=== PATIENT | female | born 1985 | race Caucasian/White ===

== ENCOUNTER 2018-10-04 08:57 | Inpatient (IN) | payer MEDICAID ==
[2018-10-04] MEDS ORDERED: BUTORPHANOL 2 MG INJ IV (09:30)
[2018-10-04] MEDS ORDERED: LIDOCAINE 1% (MPF) 30 ML INJ INJ (09:30)
[2018-10-04] MEDS ORDERED: CARBOPROST 250 MCG INJ IM ×2 (09:30→13:30)
[2018-10-04] MEDS ORDERED: METHYLERGONOVINE 0.2 MG INJ IM ×2 (09:30→13:30)
[2018-10-04] MEDS ORDERED: IBUPROFEN 600 MG TAB PO (09:30)
[2018-10-04] MEDS ORDERED: OXYTOCIN 30 UNITS/LR 500 ML IV ×3 (09:30→13:30)
[2018-10-04] MEDS ORDERED: MISOPROSTOL 200 MCG TAB PR ×2 (09:30→13:30)
[2018-10-04 10:00] LABS: ADD MAN DIFF? NO
[2018-10-04] MEDS: LACTATED RINGER'S 1,000 ML IV (10:01)
[2018-10-04 10:02] LABS: WHITE BLOOD COUNT 10.8 10^3/ul (4.8-10.8)
[2018-10-04 10:02] LABS: BASOPHILS % 0.3 % (0.0-2.0); EOSINOPHILS % 0.3 % (0.0-7.0); HEMATOCRIT 42.7 % (37.0-47.0); HEMOGLOBIN 14.4 g/dl (12.0-16.0); LYMPHOCYTES # 1.5 10^3/ul (0.8-2.9); LYMPHOCYTES % 13.8 % (15.0-51.0); MEAN CORPUSCULAR HEMOGLOBIN 31.8 pg (29.0-33.0); MEAN CORPUSCULAR HGB CONC 33.7 g/dl (32.0-37.0); MEAN CORPUSCULAR VOLUME 94.3 fl (82.0-101.0); MEAN PLATELET VOLUME 10.1 fl (7.4-10.4); MONOCYTE # 0.6 10^3/ul (0.3-0.9); MONOCYTES % 5.7 % (0.0-11.0); NEUTROPHIL # 8.6 10^3/ul (1.6-7.5); NEUTROPHILS % 79.4 % (39.0-77.0); PLATELET COUNT 239 10^3/UL (140-415); RED BLOOD COUNT 4.53 10^6/ul (4.20-5.40); RED CELL DISTRIBUTION WIDTH 13.6 % (11.5-14.5)
[2018-10-04 10:16] LABS: INR 0.85; PROTIME 11.7 Sec (11.9-14.9); PT RATIO 0.9
[2018-10-04 10:22] LABS: PARTIAL THROMBOPLASTIN TIME 27.5 Sec (23.0-35.0)
[2018-10-04] MEDS ORDERED: FENTAnyl 2MCG/ML-ROPIV 0.2% 100 ML (11:48)
[2018-10-04] MEDS: OXYTOCIN 30 UNITS/LR 500 ML IV ×3 (12:31→18:02)
[2018-10-04 12:48] LABS: HEPATITIS B SURFACE ANTIGEN NEGATIVE (NEGATIVE)
[2018-10-04] MEDS ORDERED: ONDANSETRON 4 MG INJ IV ×2 (13:30→14:00)
[2018-10-04] MEDS ORDERED: NACL 0.9% 3 ML SYG IV (13:30)
[2018-10-04] MEDS ORDERED: ACETAMINOPHEN 325 MG TAB PO (13:30)
[2018-10-04] MEDS ORDERED: OXYCODONE/ASPIRIN (4.88/325) TAB PO (13:30)
[2018-10-04] MEDS ORDERED: NALOXONE (0.4 MG/ML) INJ IV (14:00)
[2018-10-04] MEDS ORDERED: DIPHENHYDRAMINE 50 MG INJ IV (14:00)
[2018-10-04] MEDS ORDERED: FENTAnyl 2MCG/ML-ROPIV 0.2% 100 ML BAG EPI (14:00)
[2018-10-04 15:02] LABS: RAPID PLASMA REAGIN NONREACTIVE (NR)
[2018-10-04] MEDS: IBUPROFEN 600 MG TAB PO (17:54)
[2018-10-04] MEDS ORDERED: ALBUTEROL HFA 8 GM INHALER INH (21:00)
[2018-10-04] MEDS: BENZOCAINE 20% 56 ML SPRAY TOP (21:20)
[2018-10-04] MEDS: OXYCODONE/ASPIRIN (4.88/325) TAB PO (21:20)
[2018-10-04] MEDS: SENNA/DOCUSATE NA (8.6MG/50MG) TAB PO (21:21)
[2018-10-04] MEDS: WITCH HAZEL/GLYCERIN PAD PR (21:21)
[2018-10-04] MEDS: LANOLIN HPA 1 PKT TOP (21:21)
[2018-10-05] MEDS: IBUPROFEN 600 MG TAB PO ×5 (00:06→23:52)
[2018-10-05 08:22] LABS: HEMATOCRIT 37.5 % (37.0-47.0); HEMOGLOBIN 12.6 g/dl (12.0-16.0)
[2018-10-05] MEDS: SENNA/DOCUSATE NA (8.6MG/50MG) TAB PO ×2 (09:27→21:22)
[2018-10-06] MEDS: IBUPROFEN 600 MG TAB PO ×2 (05:28→12:00)
[2018-10-06] MEDS: BENZOCAINE 20% 56 ML SPRAY TOP (06:56)
[2018-10-06] MEDS: SENNA/DOCUSATE NA (8.6MG/50MG) TAB PO (09:00)
== END 2018-10-06 14:37 | disposition home or self-care (01) | DRG 807 ==
LOC: OBT 08:57 → L-D 08:57 → OBT 09:21 → L-D 09:20 → PP1 14:51
PROVIDERS: Obstetrics & Gynecology
PROC: 10E0XZZ Delivery of Products of Conception, External Approach (ICD-10-PCS; principal; 2018-10-04)
DX: O48.0 Post-term pregnancy (principal); Z37.0 Single live birth; Z3A.40 40 weeks gestation of pregnancy; O69.81X0 Labor and delivery complicated by cord around neck, without compression, not applicable or unspecified
CPT/HCPCS: 62319; 76815; 85014; 85018; 85025; 85610; 85730; 86592; 86850; 86900; 86901; 87340; 99464

== ENCOUNTER 2018-11-05 19:37 | Inpatient (IN) | payer MEDICAID ==
[2018-11-05 21:01] LABS: ADD MAN DIFF? NO
[2018-11-05] MEDS: SODIUM CHLORIDE 0.9% 1L BAG IV* (21:01)
[2018-11-05] MEDS: KETOROLAC 30 MG INJ IV (21:03)
[2018-11-05 21:05] LABS: BASOPHIL # 0.1 10^3/ul (0.0-0.1); BASOPHILS % 0.5 % (0.0-2.0); EOSINOPHILS % 7.1 % (0.0-7.0); HEMATOCRIT 38.2 % (37.0-47.0); HEMOGLOBIN 12.7 g/dl (12.0-16.0); LYMPHOCYTES # 1.2 10^3/ul (0.8-2.9); LYMPHOCYTES % 8.1 % (15.0-51.0); MEAN CORPUSCULAR HEMOGLOBIN 30.5 pg (29.0-33.0); MEAN CORPUSCULAR HGB CONC 33.2 g/dl (32.0-37.0); MEAN CORPUSCULAR VOLUME 91.8 fl (82.0-101.0); MEAN PLATELET VOLUME 8.9 fl (7.4-10.4); MONOCYTE # 0.9 10^3/ul (0.3-0.9); MONOCYTES % 6.5 % (0.0-11.0); NEUTROPHIL # 11.1 10^3/ul (1.6-7.5); NEUTROPHILS % 77.2 % (39.0-77.0); PLATELET COUNT 323 10^3/UL (140-415); RED BLOOD COUNT 4.16 10^6/ul (4.20-5.40); RED CELL DISTRIBUTION WIDTH 12.7 % (11.5-14.5)
[2018-11-05 21:05] LABS: WHITE BLOOD COUNT 14.4 10^3/ul (4.8-10.8)
[2018-11-05 21:13] LABS: LACTIC ACID 1.3 mmol/L (0.5-2.0)
[2018-11-05 21:13] LABS: ALANINE AMINOTRANSFERASE 21 IU/L (13-69); ALBUMIN 3.8 g/dl (3.3-4.9); ALBUMIN/GLOBULIN RATIO 1.11; ALKALINE PHOSPHATASE 112 IU/L (42-121); ANION GAP 8 (5-13); ASPARTATE AMINO TRANSFERASE 22 IU/L (15-46); BILIRUBIN,INDIRECT 0.2 mg/dl (0-1.1); BILIRUBIN,TOTAL 0.2 mg/dl (0.2-1.3); BLOOD UREA NITROGEN 12 mg/dl (7-20); CALCIUM 9.2 mg/dl (8.4-10.2); CARBON DIOXIDE 26 mmol/L (21-31); CHLORIDE 107 mmol/L (97-110); CREATINE KINASE 22 IU/L (23-200); CREATININE 0.93 mg/dl (0.44-1.00); Estimated GFR > 60 mL/min (>60); GLUCOSE 116 mg/dl (70-220); POTASSIUM 4.1 mmol/L (3.5-5.1); SODIUM 141 mmol/L (135-144); TOTAL PROTEIN 7.2 g/dl (6.1-8.1)
[2018-11-05] MEDS: AMPICILLIN/SULB 3 GM/NS (PMX) 100 ML IVPB (22:15)
[2018-11-05 23:03] LABS: LACTIC ACID 0.7 mmol/L (0.5-2.0)
[2018-11-05 23:10] LABS: URINE PH (Dip) POC 5.5 (5.0-8.5)
[2018-11-05 23:10] LABS: URINE BLOOD (Dip) POC Trace-lysed (NEGATIVE); URINE GLUCOSE (Dip) POC Negative (NEGATIVE); URINE KETONES (Dip) POC Negative (NEGATIVE); URINE LEUKOCYTE EST (Dip) POC Trace (NEGATIVE); URINE NITRITE (Dip) POC Negative (NEGATIVE); URINE TOTAL PROTEIN POC Negative (NEGATIVE)
[2018-11-05 23:27] LABS: ADD UMIC YES; UR ASCORBIC ACID NEGATIVE (NEGATIVE); UR BILIRUBIN (Dip) NEGATIVE (NEGATIVE); UR BLOOD (Dip) 1+ mg/dL (NEGATIVE); UR CLARITY CLEAR (CLEAR); UR COLOR YELLOW (YELLOW); UR GLUCOSE (Dip) NEGATIVE (NEGATIVE); UR KETONES (Dip) NEGATIVE (NEGATIVE); UR LEUKOCYTE ESTERASE (Dip) 1+ Leu/ul (NEGATIVE); UR NITRITE (Dip) NEGATIVE (NEGATIVE); UR RBC 4 /HPF (0-5); UR SPECIFIC GRAVITY (Dip) 1.025 (1.003-1.030); UR SQUAMOUS EPITHELIAL CELL FEW /HPF (FEW); UR TOTAL PROTEIN (Dip) NEGATIVE (NEGATIVE); UR UROBILINOGEN (Dip) NEGATIVE (NEGATIVE); UR WBC 13 /HPF (0-5)
[2018-11-05] MEDS: CEFTRIAXONE 1 GM/50 ML (PMX) 50 ML IVPB (23:49)
[2018-11-06] MEDS ORDERED: ACETAMINOPHEN 325 MG TAB PO
[2018-11-06] MEDS ORDERED: ONDANSETRON 4 MG INJ IV ×2 (00:30)
[2018-11-06] MEDS ORDERED: NACL 0.9% 3 ML SYG IV (00:30)
[2018-11-06] MEDS ORDERED: VANCOMYCIN IV PER PHARMACY XX (00:30)
[2018-11-06] MEDS: AMPICILLIN/SULB 3 GM/NS (PMX) 100 ML IVPB ×3 (01:23→18:29)
[2018-11-06] MEDS: SOD CHLORIDE 0.9% 1,000 ML IV ×3 (01:24→18:46)
[2018-11-06 01:36] LABS: LACTIC ACID 0.7 mmol/L (0.5-2.0)
[2018-11-06 05:15] LABS: ADD MAN DIFF? NO
[2018-11-06 05:30] LABS: BASOPHILS % 0.3 % (0.0-2.0); EOSINOPHILS # 0.8 10^3/ul (0.0-0.5); EOSINOPHILS % 6.5 % (0.0-7.0); HEMATOCRIT 35.4 % (37.0-47.0); HEMOGLOBIN 11.8 g/dl (12.0-16.0); LYMPHOCYTES # 1.2 10^3/ul (0.8-2.9); LYMPHOCYTES % 9.3 % (15.0-51.0); MEAN CORPUSCULAR HEMOGLOBIN 30.6 pg (29.0-33.0); MEAN CORPUSCULAR HGB CONC 33.3 g/dl (32.0-37.0); MEAN CORPUSCULAR VOLUME 91.7 fl (82.0-101.0); MONOCYTE # 0.9 10^3/ul (0.3-0.9); MONOCYTES % 7.2 % (0.0-11.0); NEUTROPHIL # 9.8 10^3/ul (1.6-7.5); NEUTROPHILS % 76.2 % (39.0-77.0); PLATELET COUNT 264 10^3/UL (140-415); RED BLOOD COUNT 3.86 10^6/ul (4.20-5.40); RED CELL DISTRIBUTION WIDTH 12.8 % (11.5-14.5)
[2018-11-06 05:30] LABS: WHITE BLOOD COUNT 12.9 10^3/ul (4.8-10.8)
[2018-11-06 05:57] LABS: ALANINE AMINOTRANSFERASE 25 IU/L (13-69); ALBUMIN 3.1 g/dl (3.3-4.9); ALBUMIN/GLOBULIN RATIO 1.03; ALKALINE PHOSPHATASE 97 IU/L (42-121); ANION GAP 7 (5-13); ASPARTATE AMINO TRANSFERASE 19 IU/L (15-46); BILIRUBIN,INDIRECT 0.2 mg/dl (0-1.1); BILIRUBIN,TOTAL 0.2 mg/dl (0.2-1.3); BLOOD UREA NITROGEN 12 mg/dl (7-20); CALCIUM 8.2 mg/dl (8.4-10.2); CARBON DIOXIDE 24 mmol/L (21-31); CHLORIDE 109 mmol/L (97-110); CREATININE 0.57 mg/dl (0.44-1.00); Estimated GFR > 60 mL/min (>60); GLUCOSE 97 mg/dl (70-220); MAGNESIUM 1.8 mg/dl (1.7-2.5); PHOSPHORUS 3.2 mg/dl (2.5-4.9); SODIUM 140 mmol/L (135-144); TOTAL PROTEIN 6.1 g/dl (6.1-8.1)
[2018-11-06] MEDS: VANCOMYCIN HCL 1.25 GM in SOD CHLORIDE 0.9% 250 ML IVPB (06:00)
[2018-11-06] MEDS: HYDROCODONE/APAP (5/325) TAB PO ×2 (06:08→15:58)
[2018-11-06] MEDS: morphine 2 MG INJ IV ×2 (13:46→18:28)
[2018-11-06] MEDS: VANCOMYCIN 500 MG (PMX) 100 ML IVPB ×2 (13:54→21:27)
[2018-11-06] MEDS: LIDOCAINE 1% (MPF) 5 ML VIAL (14:00)
[2018-11-06] MEDS ORDERED: VANCOMYCIN 500 MG (PMX) 100 ML IVPB (19:00)
[2018-11-06] MEDS ORDERED: CEFTRIAXONE 1 GM/50 ML (PMX) 50 ML IVPB (23:00)
[2018-11-07] MEDS: SOD CHLORIDE 0.9% 1,000 ML IV ×3 (00:02→17:41)
[2018-11-07] MEDS: AMPICILLIN/SULB 3 GM/NS (PMX) 100 ML IVPB ×5 (01:10→19:10)
[2018-11-07] MEDS: morphine 2 MG INJ IV (01:10)
[2018-11-07] MEDS: KETOROLAC 30 MG INJ IV (04:13)
[2018-11-07 05:24] LABS: WHITE BLOOD COUNT 11.7 10^3/ul (4.8-10.8)
[2018-11-07 05:24] LABS: ADD MAN DIFF? NO; BASOPHILS % 0.3 % (0.0-2.0); EOSINOPHILS # 0.6 10^3/ul (0.0-0.5); EOSINOPHILS % 5.3 % (0.0-7.0); HEMATOCRIT 33.8 % (37.0-47.0); HEMOGLOBIN 11.2 g/dl (12.0-16.0); LYMPHOCYTES # 1.6 10^3/ul (0.8-2.9); LYMPHOCYTES % 13.5 % (15.0-51.0); MEAN CORPUSCULAR HEMOGLOBIN 30.4 pg (29.0-33.0); MEAN CORPUSCULAR HGB CONC 33.1 g/dl (32.0-37.0); MEAN CORPUSCULAR VOLUME 91.8 fl (82.0-101.0); MEAN PLATELET VOLUME 8.8 fl (7.4-10.4); MONOCYTE # 0.9 10^3/ul (0.3-0.9); MONOCYTES % 7.6 % (0.0-11.0); NEUTROPHIL # 8.6 10^3/ul (1.6-7.5); PLATELET COUNT 260 10^3/UL (140-415); RED BLOOD COUNT 3.68 10^6/ul (4.20-5.40); RED CELL DISTRIBUTION WIDTH 12.8 % (11.5-14.5)
[2018-11-07] MEDS: VANCOMYCIN 500 MG (PMX) 100 ML IVPB ×3 (05:32→06:32)
[2018-11-07 06:10] LABS: VANCOMYCIN,TROUGH 5.7 ug/ml (10.0-20.0)
[2018-11-07] MEDS: SOD CHLORIDE 0.9% 100 ML (06:13)
[2018-11-07] MEDS: IOHEXOL 300MG/ML 150 ML BTL (06:13)
[2018-11-07 06:14] LABS: ANION GAP 9 (5-13); BLOOD UREA NITROGEN 6 mg/dl (7-20); CALCIUM 8.5 mg/dl (8.4-10.2); CARBON DIOXIDE 25 mmol/L (21-31); CHLORIDE 104 mmol/L (97-110); CREATININE 0.44 mg/dl (0.44-1.00); Estimated GFR > 60 mL/min (>60); GLUCOSE 95 mg/dl (70-220); MAGNESIUM 1.9 mg/dl (1.7-2.5); PHOSPHORUS 3.8 mg/dl (2.5-4.9); POTASSIUM 3.7 mmol/L (3.5-5.1); SODIUM 138 mmol/L (135-144)
[2018-11-07 06:17] LABS: C-REACTIVE PROTEIN 14.8 mg/dl (0.0-0.9)
[2018-11-07 07:16] LABS: ERYTHROCYTE SEDIMENTATION RATE 56 mm/Hr (0-20)
[2018-11-07] MEDS ORDERED: VANCOMYCIN 1 GM 250 ML IVPB (11:00)
[2018-11-07] MEDS: ENOXAPARIN 40 MG/0.4 ML SYG SC (13:46)
[2018-11-07] MEDS: VANCOMYCIN 1 GM 250 ML IVPB ×2 (14:47→21:03)
[2018-11-08] MEDS: HYDROCODONE/APAP (5/325) TAB PO (00:01)
[2018-11-08] MEDS: AMPICILLIN/SULB 3 GM/NS (PMX) 100 ML IVPB ×2 (00:01→06:03)
[2018-11-08] MEDS: SOD CHLORIDE 0.9% 1,000 ML IV ×2 (00:02→09:49)
[2018-11-08] MEDS: VANCOMYCIN 1 GM 250 ML IVPB (04:40)
[2018-11-08 04:59] LABS: ADD MAN DIFF? NO
[2018-11-08 05:01] LABS: WHITE BLOOD COUNT 7.5 10^3/ul (4.8-10.8)
[2018-11-08 05:01] LABS: BASOPHIL # 0.1 10^3/ul (0.0-0.1); BASOPHILS % 0.7 % (0.0-2.0); EOSINOPHILS # 0.8 10^3/ul (0.0-0.5); EOSINOPHILS % 10.2 % (0.0-7.0); HEMATOCRIT 32.3 % (37.0-47.0); HEMOGLOBIN 10.7 g/dl (12.0-16.0); LYMPHOCYTES # 1.9 10^3/ul (0.8-2.9); LYMPHOCYTES % 25.3 % (15.0-51.0); MEAN CORPUSCULAR HEMOGLOBIN 30.4 pg (29.0-33.0); MEAN CORPUSCULAR HGB CONC 33.1 g/dl (32.0-37.0); MEAN CORPUSCULAR VOLUME 91.8 fl (82.0-101.0); MEAN PLATELET VOLUME 8.6 fl (7.4-10.4); MONOCYTE # 0.7 10^3/ul (0.3-0.9); NEUTROPHIL # 4.1 10^3/ul (1.6-7.5); NEUTROPHILS % 54.3 % (39.0-77.0); PLATELET COUNT 255 10^3/UL (140-415); RED BLOOD COUNT 3.52 10^6/ul (4.20-5.40); RED CELL DISTRIBUTION WIDTH 12.4 % (11.5-14.5)
[2018-11-08 05:26] LABS: ANION GAP 6 (5-13); BLOOD UREA NITROGEN 9 mg/dl (7-20); CALCIUM 8.4 mg/dl (8.4-10.2); CARBON DIOXIDE 25 mmol/L (21-31); CHLORIDE 109 mmol/L (97-110); CREATININE 0.51 mg/dl (0.44-1.00); Estimated GFR > 60 mL/min (>60); GLUCOSE 92 mg/dl (70-220); POTASSIUM 4.1 mmol/L (3.5-5.1); SODIUM 140 mmol/L (135-144)
[2018-11-08 05:31] LABS: PHOSPHORUS 3.8 mg/dl (2.5-4.9)
[2018-11-08] MEDS: AMOXICILLIN/CLAV 875 MG TAB PO ×2 (08:43→21:33)
[2018-11-08] MEDS: TRIMETHOPRIM/SULFAMETHOX (DS) TAB PO ×2 (08:43→21:33)
[2018-11-08] MEDS: ENOXAPARIN 40 MG/0.4 ML SYG SC (08:46)
[2018-11-08] MEDS: ACETAMINOPHEN 325 MG TAB PO (21:33)
[2018-11-09 05:01] LABS: ADD MAN DIFF? NO
[2018-11-09 05:05] LABS: BASOPHILS % 0.5 % (0.0-2.0); EOSINOPHILS # 0.8 10^3/ul (0.0-0.5); EOSINOPHILS % 9.2 % (0.0-7.0); HEMATOCRIT 37.2 % (37.0-47.0); HEMOGLOBIN 12.3 g/dl (12.0-16.0); LYMPHOCYTES # 1.9 10^3/ul (0.8-2.9); LYMPHOCYTES % 21.6 % (15.0-51.0); MEAN CORPUSCULAR HEMOGLOBIN 30.1 pg (29.0-33.0); MEAN CORPUSCULAR HGB CONC 33.1 g/dl (32.0-37.0); MEAN CORPUSCULAR VOLUME 91.2 fl (82.0-101.0); MEAN PLATELET VOLUME 8.5 fl (7.4-10.4); MONOCYTE # 0.7 10^3/ul (0.3-0.9); MONOCYTES % 8.5 % (0.0-11.0); NEUTROPHIL # 5.2 10^3/ul (1.6-7.5); NEUTROPHILS % 59.5 % (39.0-77.0); PLATELET COUNT 328 10^3/UL (140-415); RED BLOOD COUNT 4.08 10^6/ul (4.20-5.40); RED CELL DISTRIBUTION WIDTH 12.4 % (11.5-14.5)
[2018-11-09 05:05] LABS: WHITE BLOOD COUNT 8.7 10^3/ul (4.8-10.8)
[2018-11-09 05:51] LABS: ANION GAP 10 (5-13); BLOOD UREA NITROGEN 9 mg/dl (7-20); CALCIUM 9.1 mg/dl (8.4-10.2); CARBON DIOXIDE 26 mmol/L (21-31); CHLORIDE 105 mmol/L (97-110); CREATININE 0.63 mg/dl (0.44-1.00); Estimated GFR > 60 mL/min (>60); GLUCOSE 92 mg/dl (70-220); POTASSIUM 4.4 mmol/L (3.5-5.1); SODIUM 141 mmol/L (135-144)
[2018-11-09] MEDS: AMOXICILLIN/CLAV 875 MG TAB PO (08:17)
[2018-11-09] MEDS: ENOXAPARIN 40 MG/0.4 ML SYG SC (08:17)
== END 2018-11-09 13:14 | disposition home or self-care (01) | DRG 776 ==
LOC: MS1 23:56 → E/R 19:37 → MS1 11-06 00:27
PROC: 0HBT3ZX Excision of Right Breast, Percutaneous Approach, Diagnostic (ICD-10-PCS; principal; 2018-11-06)
DX: O85 Puerperal sepsis (principal); O86.20 Urinary tract infection following delivery, unspecified; O91.12 Abscess of breast associated with the puerperium; B95.61 Methicillin susceptible Staphylococcus aureus infection as the cause of diseases classified elsewhere; M62.81 Muscle weakness (generalized)
CPT/HCPCS: 36415; 70450; 71045; 72125; 72128; 74177; 76642; 76856; 76942; 80048; 80053; 80202; 81001; 81003; 81025; 82550; 83605; 83735; 84100; 85025; 85651; 86140; 87040-91; 87070; 87075; 87086; 87400; 88307; 93005; 93970; 96374; 96375; 97161; 99285-25

== ENCOUNTER 2019-01-15 05:41 | Day surgery (SDC) | payer MEDICAID ==
[2019-01-15 06:51] LABS: ADD MAN DIFF? NO
[2019-01-15 06:58] LABS: BASOPHILS % 0.3 % (0.0-2.0); EOSINOPHILS # 0.1 10^3/ul (0.0-0.5); EOSINOPHILS % 2.4 % (0.0-7.0); HEMATOCRIT 37.9 % (37.0-47.0); HEMOGLOBIN 12.7 g/dl (12.0-16.0); LYMPHOCYTES # 1.7 10^3/ul (0.8-2.9); LYMPHOCYTES % 29.3 % (15.0-51.0); MEAN CORPUSCULAR HEMOGLOBIN 30.5 pg (29.0-33.0); MEAN CORPUSCULAR HGB CONC 33.5 g/dl (32.0-37.0); MEAN CORPUSCULAR VOLUME 90.9 fl (82.0-101.0); MEAN PLATELET VOLUME 9.2 fl (7.4-10.4); MONOCYTE # 0.5 10^3/ul (0.3-0.9); MONOCYTES % 8.6 % (0.0-11.0); NEUTROPHIL # 3.5 10^3/ul (1.6-7.5); NEUTROPHILS % 59.2 % (39.0-77.0); PLATELET COUNT 273 10^3/UL (140-415); RED BLOOD COUNT 4.17 10^6/ul (4.20-5.40); RED CELL DISTRIBUTION WIDTH 13.5 % (11.5-14.5)
[2019-01-15 06:58] LABS: WHITE BLOOD COUNT 5.9 10^3/ul (4.8-10.8)
[2019-01-15] MEDS ORDERED: FENTAnyl 50 MCG/ML VIAL (07:44)
[2019-01-15] MEDS ORDERED: ONDANSETRON 4 MG INJ (07:44)
[2019-01-15] MEDS ORDERED: GLYCOPYRROLATE 0.4 MG INJ (07:44)
[2019-01-15] MEDS ORDERED: DEXAMETHASONE 4 MG/ML 5 ML INJ (07:44)
[2019-01-15] MEDS ORDERED: NEOSTIGMINE 3 MG/3 ML SYRINGE (07:44)
[2019-01-15] MEDS ORDERED: FAMOTIDINE 20 MG INJ (07:49)
[2019-01-15] MEDS ORDERED: CEFAZOLIN 1 GM INJ (08:04)
[2019-01-15] MEDS ORDERED: ROCURONIUM 50 MG INJ (08:05)
[2019-01-15] MEDS ORDERED: LIDOCAINE 2% (SDV) 5 ML INJ (08:05)
[2019-01-15] MEDS ORDERED: KETOROLAC 30 MG INJ (08:29)
[2019-01-15] MEDS: ONDANSETRON 4 MG INJ IV (08:58)
[2019-01-15] MEDS: FENTAnyl 50 MCG/ML VIAL IV (08:58)
[2019-01-15] MEDS: MEPERIDINE 25 MG INJ IV (08:58)
[2019-01-15] MEDS ORDERED: HYDROmorphONE 1 MG/5 ML IV SYRINGE IV (09:00)
[2019-01-15] MEDS ORDERED: ALBUTEROL 0.083% (NEB) 2.5 MG/3 ML AMP HHN (09:00)
[2019-01-15] MEDS ORDERED: LABETALOL HCL 20MG INJ IV (09:00)
[2019-01-15] MEDS: OXYCODONE/ACETAMINOPHEN (5/325) TAB PO (09:51)
== END 2019-01-15 11:20 | disposition home or self-care (01) ==
LOC: SDS 05:41
DX: Z30.2 Encounter for sterilization (principal); J45.909 Unspecified asthma, uncomplicated
CPT/HCPCS: 58670; 84702; 85025; 86900; 86901